=== PATIENT | female | born 1945 | race Two or more races ===

== ENCOUNTER 2017-09-28 11:19 | Emergency (ER) | payer OTHER ==
[~2017-09-28] VITALS: Ht 157.5 cm; Wt 86.2 kg
[2017-09-28] MEDS ORDERED: ATIVAN2 MG (11:39)
[2017-09-28] MEDS ORDERED: PLAVIX75 MG (11:39)
[2017-09-28] MEDS ORDERED: LASIX20 MG (11:39)
[2017-09-28] MEDS ORDERED: HYDRODIURIL12.5 MG (11:39)
[2017-09-28] MEDS ORDERED: GLUCOTROL10 MG (11:40)
== END 2017-09-28 14:28 | disposition home or self-care (01) ==
LOC: ER 11:19
DX: M54.5 Low back pain (principal)